=== PATIENT | male | born 1945 | race Caucasian/White ===

== ENCOUNTER 2017-02-01 05:00 | Day surgery (SDC) | payer OTHER ==
[2017-01-30 13:48] VITALS: BMI 33.5
[2017-02-01] MEDS ORDERED: CLINDAMYCIN 600 MG PREMIX BAG IVPB ONE (14:05)
[2017-02-01] MEDS ORDERED: SUCCINYLCHOLINE CHLORIDE 200 MG/10 ML VIAL ONE (14:06)
[2017-02-01] MEDS ORDERED: PROPOFOL 20 ML ONE (14:06)
[2017-02-01] MEDS ORDERED: LIDOCAINE HCL/PF 2% SDV 5ML VIAL ONE (14:18)
[2017-02-01] MEDS ORDERED: CLINDAMYCIN PHOSPHATE 600 MG/4 ML VIAL ONE (14:18)
[2017-02-01] MEDS ORDERED: DEXAMETHASONE SOD PHOSPHATE 4 MG/1 ML VIAL ONE (14:18)
[2017-02-01] MEDS ORDERED: LACTATED RINGERS SOLUTION 1,000 ML IV SCH (14:30)
[2017-02-01] MEDS ORDERED: PROMETHAZINE HCL 25 MG/1 ML VIAL IVPUSH PRN (14:30)
[2017-02-01] MEDS ORDERED: ONDANSETRON 4 MG/2 ML VIAL IVPUSH PRN (14:30)
[2017-02-01] MEDS ORDERED: KETOROLAC TROMETHAMINE 30 MG/1 ML VIAL ONE (14:34)
--- NOTE | 2017-02-01 15:25 | OP ---
Operative Note - Note: Operative Date: 02/01/17 Pre-Operative Diagnosis: Left Renal calculi and Left indwelling stent Operation: Cysto, retro, ureteroscopy, laser lithotripsy and stent exchange Findings: Large left renal calculus and multiple smaller calculi Implants: Stent Post-Operative Diagnosis: Same as Pre-op Surgeon: Richar Ellison Anesthesia: General Operative Report Dictated: Yes
[2017-02-01 16:27] VITALS: TEMP 97.9
[2017-02-01 17:16] VITALS: BP 126/63; PULSE 53
--- NOTE | 2017-02-02 06:58 | OP ---
DATE OF OPERATION: 02/01/2017 SURGEON: Richar Ellison M.D. ANESTHESIA: General. PREOPERATIVE DIAGNOSIS: Left renal calculi. POSTOPERATIVE DIAGNOSIS: Left renal calculi. PROCEDURE PERFORMED: Cystoscopy, retrograde left ureteroscopy, laser lithotripsy and stent exchange. FINDINGS: One small calculus was found and a much larger calculus found in the left collecting system, in the lower pole. DESCRIPTION OF PROCEDURE: With the patient in the lithotomy position, under anesthesia, was prepped and draped in the usual manner. The previously placed stent was removed using biopsy forceps. Then a guidewire was placed in the left collecting system, and confirmed with x-ray. Then a second guidewire was placed. A flexible ureteroscope was used to reach the left collecting system. A 7-mm calculus was seen and was fragmented using the laser. A much larger calculus was found in the lower pole and partial lithotripsy carried out. Because of the position, the scope could not bend enough, with the laser fiber, to reach the stone. Multiple attempts were made, but unfortunately, because of the position of the stone, the stone could not be targeted with the fiber. So the procedure was abandoned. The guidewire was replaced and the stent was replaced. The patient tolerated the procedure well and left the operating room in satisfactory condition. RICHAR ELLISON M.D. [id number]
--- NOTE | 2017-02-03 09:42 | PATH ---
Surgical Pathology Report Patient Name: TANYA LONDON Med. Rec. #: [id number] /Age/Gender: 1945 (Age: 71) / M Account: [id number] Location: [facility] Taken: 02/02/2017 Received: 02/02/2017 Reported: 02/03/2017 Physicians: Megan Cheema M.D. Specimen(s) Received REMOVAL OF LEFT URETERAL STENT Clinical History Hydronephrosis Final Diagnosis [employer]ATOR, LEFT URETER, REMOVAL: URETERAL STENT (GROSS ONLY). Electronically Signed Kevin Sanz M.D. Gross Description Received fresh labeled "removed stent," is a 38 cm in length yellow, coiled portion of tubing, consistent with a ureteral stent. No soft tissue is present. No sections are submitted, gross only. /02/02/2017 saudi02/02/2017
== END 2017-02-01 17:36 | disposition home or self-care (01) ==
LOC: JASU-SURG 05:00 → EDSTATUS 14:00 → JASU-SURG 17:36
PROVIDERS: ATTEND Urology
PROC: 0TF48ZZ Fragmentation in Left Kidney Pelvis, Via Natural or Artificial Opening Endoscopic (ICD-10-PCS; principal; 2017-02-01 14:00)
PROC: 0T778DZ Dilation of Left Ureter with Intraluminal Device, Via Natural or Artificial Opening Endoscopic (ICD-10-PCS; 2017-02-01 14:00)
DX: N20.0 Calculus of kidney (principal)
CPT/HCPCS: 76000-TC; 88300-TC; 94760

== ENCOUNTER 2017-02-22 11:03 | Day surgery (SDC) | payer OTHER ==
[2017-02-21 16:34] VITALS: BMI 33.5
[2017-02-22] MEDS ORDERED: GENTAMICIN 80MG PREMIX BAG IVPB ONE (13:57)
[2017-02-22] MEDS ORDERED: CLINDAMYCIN 600 MG PREMIX BAG IVPB ONE (13:57)
[2017-02-22] MEDS ORDERED: DESFLURANE GAS 240 ML BOTTLE IH ONE (14:20)
--- NOTE | 2017-02-22 15:18 | OP ---
Operative Note - Note: Operative Date: 02/22/17 Pre-Operative Diagnosis: Left lowerpole renal calculus Operation: cysto, ureteroscopy, retrograde laser lithotripsy and stent change Findings: Moderate sized left renal calculus with irregular edges embedded in the lower pole Post-Operative Diagnosis: Same as Pre-op Surgeon: Richar Ellison Anesthesia: General Drains & Tubes with Location: Stent
[2017-02-22] MEDS ORDERED: oxyCODONE HCL 5 MG TABLET PO PRN (15:26)
[2017-02-22] MEDS ORDERED: ONDANSETRON 4 MG/2 ML VIAL IVPUSH PRN (15:26)
[2017-02-22] MEDS ORDERED: LACTATED RINGERS SOLUTION 1,000 ML IV SCH (15:30)
--- NOTE | 2017-02-22 16:24 | OP ---
DATE OF OPERATION: 02/22/2017 SURGEON: Richar Ellison MD ANESTHESIA: General. PREOPERATIVE DIAGNOSIS: Left renal calculus. POSTOPERATIVE DIAGNOSES: Left renal calculus. Indwelling stent. PROCEDURES: Cystoscopy, retrograde, left ureteroscopy, laser lithotripsy, and stent placement. FINDINGS: A moderate-sized calculus noted in the lower calyx on the left side deeply imbedded in the calyx with multiple irregular facets. A lot of reaction noted in the kidney around the stone. Rest of the kidney found to be normal. PROCEDURE: Patient in lithotomy position under anesthesia was prepped and draped in the usual manner. First, the previously placed stent was removed. A guide wire was placed into the kidney. Using a double-lumen catheter, a second guide wire was placed and a flexible ureteroscope was passed into the kidney. With deep irrigation and considerable maneuvering, the stone was located in the extreme lower calyx inverted in the calyx. Many attempts to dislodge the stone with the basket or with the irrigation failed. Finally, with considerable maneuvering, a 205-micron fiber was used. Laser lithotripsy carried out to some extent, but because of the severe lower pole location and the inability to bend the flexible scope with the fiber in it, the procedure could not be completed. It was decided to leave the rest of the stone and the scope was removed. A guide wire was placed again, a stent was placed, and instruments withdrawn. The patient tolerated the procedure well and left the operating room in a satisfactory condition. RICHAR ELLISON M.D. [id number]
[2017-02-22 17:04] VITALS: TEMP 97.5
[2017-02-22 18:10] VITALS: BP 124/63; PULSE 83
--- NOTE | 2017-02-24 10:32 | PATH ---
Surgical Pathology Report Patient Name: TANYA LONDON Med. Rec. #: [id number] /Age/Gender: 1945 (Age: 71) / M Account: [id number] Location: [facility] Taken: 02/21/2017 Received: 02/23/2017 Reported: 02/24/2017 Physicians: Dean Duran M.D. Specimen(s) Received OLD LEFT URETRAL STENT Clinical History Left ureteral/kidney stone Final Diagnosis URETERAL STENT, LEFT, OLD, REMOVAL: URETERAL STENT. MACROSCOPIC DIAGNOSIS Electronically Signed Shilpa Parrish M.D. Gross Description Received fresh labeled "old left ureteral stent," is a 35.5 cm in length yellow-green, coiled portion of tubing, consistent with a ureteral stent. No soft tissue is present. No sections are submitted, gross only. /02/23/2017 saudi/02/23/2017
== END 2017-02-22 19:40 | disposition home or self-care (01) ==
LOC: JASU-SURG 11:03
PROVIDERS: ATTEND Urology
PROC: 0TF48ZZ Fragmentation in Left Kidney Pelvis, Via Natural or Artificial Opening Endoscopic (ICD-10-PCS; principal; 2017-02-22 13:00)
PROC: 0T778DZ Dilation of Left Ureter with Intraluminal Device, Via Natural or Artificial Opening Endoscopic (ICD-10-PCS; 2017-02-22 13:00)
DX: N20.0 Calculus of kidney (principal)
CPT/HCPCS: 76000-TC; 88300-TC; 94760

== ENCOUNTER 2017-03-28 11:28 | Day surgery (SDC) | payer OTHER ==
[2017-03-24 13:22] VITALS: BMI 32.8
--- NOTE | 2017-03-28 11:48 | EKG ---
Test Reason : Blood Pressure : / mmHG Vent. Rate : 052 BPM Atrial Rate : 052 BPM P-R Int : 142 ms QRS Dur : 096 ms QT Int : 428 ms P-R-T Axes : 019 -34 -03 degrees QTc Int : 398 ms SINUS BRADYCARDIA LEFT AXIS DEVIATION ABNORMAL ECG WHEN COMPARED WITH ECG OF 25-NOV-2015 12:38, NO SIGNIFICANT CHANGE WAS FOUND Confirmed by MARLENI BRYAN, NADEGE ([id number]) on 03/28/2017 11:48:11 AM Referred By: Megan Cheema Confirmed By:NADEGE YEPEZ MD
[2017-03-28] MEDS ORDERED: LIDOCAINE HCL/PF 2% SDV 5ML VIAL ONE (14:32)
[2017-03-28] MEDS ORDERED: DEXAMETHASONE SOD PHOSPHATE 4 MG/1 ML VIAL ONE (14:32)
[2017-03-28] MEDS ORDERED: PROPOFOL 20 ML ONE (14:32)
[2017-03-28] MEDS ORDERED: SUCCINYLCHOLINE CHLORIDE 200 MG/10 ML VIAL ONE (14:33)
[2017-03-28] MEDS ORDERED: GENTAMICIN SO4 80 MG/2 ML VIAL IVPB ONE (15:00)
[2017-03-28] MEDS ORDERED: GENTAMICIN SO4 80 MG/2 ML VIAL ONE (15:01)
[2017-03-28] MEDS ORDERED: CLINDAMYCIN PHOSPHATE 600 MG/4 ML VIAL ONE (15:01)
[2017-03-28] MEDS ORDERED: CLINDAMYCIN PHOSPHATE 600 MG/4 ML VIAL IVPB ONE (15:02)
[2017-03-28] MEDS ORDERED: ePHEDrine SULFATE 50 MG/1 ML AMPULE ONE (15:11)
[2017-03-28] MEDS ORDERED: GLYCOPYRROLATE 0.2 MG/1 ML VIAL ONE (15:14)
[2017-03-28] MEDS ORDERED: IOHEXOL 300 MG/ML INFUS..BTL IJ ONE ×2 (15:18)
[2017-03-28] MEDS ORDERED: ONDANSETRON 4 MG/2 ML VIAL IVPUSH PRN (16:24)
[2017-03-28] MEDS ORDERED: oxyCODONE HCL 5 MG TABLET PO PRN (16:24)
[2017-03-28] MEDS ORDERED: LACTATED RINGERS SOLUTION 1,000 ML IV SCH (16:30)
--- NOTE | 2017-03-28 16:30 | OP ---
Operative Note - Note: Operative Date: 03/28/17 Pre-Operative Diagnosis: Left Renal Calculus Operation: Cysto, Left Retro, ureteroscopy, laser lithotripsy and stent placement Findings: Large left lower pole calculus may be more than 2 cm across very hard Post-Operative Diagnosis: Same as Pre-op Surgeon: Richar Ellison Anesthesia: General Specimens Removed: Renal calculi Fragments Drains & Tubes with Location: 22F 6 mm Stent
[2017-03-28 17:30] VITALS: TEMP 98
[2017-03-28 18:04] VITALS: BP 128/64; PULSE 86
--- NOTE | 2017-03-29 07:07 | OP ---
DATE OF OPERATION: 03/28/2017 SURGEON: Richar Ellison M.D. ANESTHESIA: General. PREOPERATIVE DIAGNOSIS: Left lower pole calculus. POSTOPERATIVE DIAGNOSIS: Left lower pole calculus. PROCEDURE PERFORMED: Cystoscopy, removal of previously placed stent, left retrograde, ureteroscopy, laser lithotripsy and stent placement. FINDINGS: Bladder normal. Marked trabeculation noted. Areas of edema around the left ureteral orifice. Stone was located maybe more than 2 cm in the left lower pole jorden, almost in a diverticulum. DESCRIPTION OF PROCEDURE: With the patient in the lithotomy position, under general anesthesia, was prepped and draped in the usual manner. Using a 22 scope, cystoscopy was performed. The previously placed stent was removed. A new guidewire was placed in the left collecting system. Then a second guidewire was placed. The second guidewire was used to place a flexible ureteroscope up into the kidney collecting system, confirmed with x-ray. Retrograde performed which showed the location of the calculus. With considerable difficulty in maneuverability, the stone was reached. Using 200-micron fiber, the stone was fragmented very well. A thin layer of shell was noted in the lower pole at the bottom of this jorden, which could not be reached by angulation and bending the scope. Considerable difficulty was encountered. The laser fiber broke twice. The stone was very hard. Very satisfactory fragmentation was carried out. The stent was replaced. The patient tolerated the procedure well and left the operating room in satisfactory condition. Dean FISCHER/[id number]
--- NOTE | 2017-03-30 08:57 | PATH ---
Surgical Pathology Report Patient Name: TANYA LONDON Med. Rec. #: [id number] /Age/Gender: 1945 (Age: 71) / M Account: [id number] Location: [facility] Taken: 03/28/2017 Received: 03/29/2017 Reported: 03/30/2017 Physicians: Angie Barron Specimen(s) Received OLD STENT Clinical History Left renal stone Final Diagnosis SAWMILL HAND, REMOVAL: URETERAL STENT (GROSS ONLY). Electronically Signed Kevin Sanz M.D. Gross Description Received fresh labeled "old stent," is a 35 cm in length yellow-green, coiled portion of tubing, consistent with a ureteral stent. No soft tissue is present. No sections are submitted, gross only. 03/29/201703/29/2017
[2017-04-05] MEDS ORDERED: LEVOFLOXACIN 500 MG TABLET (FP) PO SCH (10:00)
== END 2017-03-28 18:00 | disposition home or self-care (01) ==
LOC: JASU-SURG 11:28
PROVIDERS: ATTEND Urology
PROC: 0TF48ZZ Fragmentation in Left Kidney Pelvis, Via Natural or Artificial Opening Endoscopic (ICD-10-PCS; principal; 2017-03-28 14:00)
PROC: 0T778DZ Dilation of Left Ureter with Intraluminal Device, Via Natural or Artificial Opening Endoscopic (ICD-10-PCS; 2017-03-28 14:00)
DX: N20.0 Calculus of kidney (principal)
CPT/HCPCS: 76000-TC; 88300-TC; 93005; 93010; 94760